=== PATIENT | male | born 1955 | race Caucasian/White ===

== ENCOUNTER 2018-12-14 17:50 | Outpatient (CLI) | payer OTHER | END 2018-12-14 17:51 | disposition critical access hospital (66) | LOC: EMS 17:50 | PROVIDERS: ATTEND Surgery | DX: R55 Syncope and collapse (principal); R42 Dizziness and giddiness; R53.83 Other fatigue | CPT/HCPCS: A0425; A0427 ==

== ENCOUNTER 2018-12-14 18:07 | Emergency (ER) | payer OTHER ==
--- NOTE | 2018-12-14 18:45 | ED Physician Documentation ---
PD HPI SYNCOPE - Stated complaint Stated Complaint: SYNCOPAL - Chief complaint Chief Complaint: Neuro - History obtained from History obtained from: Patient - History of Present Illness Witnessed: Witnessed (He had a heavy weekend with a lot of sports and activity. He was talking to someone in a standing position and felt lightheaded for about 10 seconds and then passed out briefly without injury. There is no associated chest pain or trouble breathing and he feels fine now.) Review of Systems Constitutional: denies: Fever, Chills Cardiac: denies: Chest pain / pressure, Palpitations Respiratory: denies: Dyspnea, Cough GI: denies: Abdominal Pain, Bloody / black stool PD PAST MEDICAL HISTORY - Past Medical History Past Medical History: Yes Cardiovascular: Hypertension GI: GERD, GI bleed - Past Surgical History Past Surgical History: Yes - Present Medications Home Medications: Ambulatory Orders Medication Instructions Recorded Confirmed Lisinopril 10 mg PO DAILY 12/14/18 12/14/18 No Known Home Medications 12/14/18 12/14/18 Omeprazole 20 mg PO DAILY 12/14/18 12/14/18 Zolpidem Tartrate [Ambien Cr] 12.5 mg PO DAILY 12/14/18 12/14/18 - Allergies Allergies/Adverse Reactions: Allergies Allergy/AdvReac Type Severity Reaction Status Date / Time Latex, Natural Rubber Allergy Anaphylaxis Verified 12/14/18 18:16 - Social History Does the pt smoke?: No Smoking Status: Never smoker Does the pt drink ETOH?: Yes ETOH Use: Beer Does the pt have substance abuse?: No Substance Use and Type: Marijuana - Immunizations Immunizations are current?: Yes - POLST Patient has POLST: No PD ED PE NORMAL - Vitals Vital signs reviewed: Yes - General General: Alert and oriented X 3, No acute distress - HEENT HEENT: PERRL, EOMI - Neck Neck: Supple, no meningeal sign, No bony TTP - Cardiac Cardiac: RRR, No murmur - Respiratory Respiratory: No respiratory distress, Clear bilaterally - Abdomen Abdomen: Non tender - Extremities Extremities: No edema, No calf tenderness / cord - Neuro Neuro: Alert and oriented X 3, Normal speech Results - Vitals Vitals: Vital Signs - 24 hr 12/14/18 12/14/18 12/14/18 18:12 19:00 19:20 Temperature 36.8 C Heart Rate 67 75 Heart Rate [ 73 Sitting] Heart Rate [ 80 Standing] Heart Rate [ 74 Supine] Respiratory 20 18 Rate Blood Pressure 108/67 111/67 Blood Pressure 109/67 [Sitting] Blood Pressure 98/70 [Standing] Blood Pressure 104/61 [Supine] O2 Saturation 97 98 12/14/18 19:22 Temperature Heart Rate 74 Heart Rate [ Sitting] Heart Rate [ Standing] Heart Rate [ Supine] Respiratory 19 Rate Blood Pressure 98/70 Blood Pressure [Sitting] Blood Pressure [Standing] Blood Pressure [Supine] O2 Saturation 98 Oxygen O2 Source Room air - EKG (time done) 1817 Rate: Rate (enter#) (67) Rhythm: NSR [place]: Normal Intervals: Normal OR QRS: Normal Ischemia: Q waves (III only) Compare to prior EKG: Old EKG unavailable Computer interpretation: Agree with computer - Labs Labs: Laboratory Tests 12/14/18 12/14/18 18:30 18:30 WBC 4.1 L RBC 4.22 L Hgb 13.3 L Hct 40.1 L MCV 95.0 H MCH 31.5 H MCHC 33.2 RDW 12.9 Plt Count 170 MPV 10.9 Neut # (Auto) 2.6 Lymph # (Auto) 0.9 L [place] # (Auto) 0.3 Eos # (Auto) 0.2 Baso # (Auto) 0.0 Absolute Nucleated RBC 0.00 Nucleated RBC % 0.0 Sodium 143 Potassium 3.6 Chloride 107 Carbon Dioxide 23 Anion Gap 13.0 BUN 15 Creatinine 1.0 Estimated GFR (MDRD) 76 L Glucose 112 H Calcium 8.7 Total Bilirubin 0.4 AST 20 ALT 16 Alkaline Phosphatase 44 Total Protein 7.0 Albumin 4.0 Globulin 3.0 Albumin/Globulin Ratio 1.3 Lipase 23 PD MEDICAL DECISION MAKING - ED course ED course: 63-year-old gentleman with a syncopal episode that was premonition normal without injury. His work-up is negative here and he requested discharge. He received IV fluids in route and was not orthostatic after that. Departure - Departure Disposition: 01 Home, Self Care Clinical Impression: Syncope Qualifiers: Syncope type: unspecified Qualified Code(s): R55 - Syncope and collapse Condition: Good Record reviewed to determine appropriate education?: Yes Health Concerns: syncope Plan of Treatment: labs ekg neg Care Goals: safety Assessment: as above Instructions: ED Dizziness Syncope Fainting W Pre Comments: Call your doctor to arrange a follow-up appointment, make the next available appointment. In the interim, return anytime if worse or if new symptoms develop.
[2018-12-14 18:48] LABS: BASOPHILS % (AUTO) 0.7 %; EOSINOPHILS # (AUTO) 0.2 10^3/uL (0.0-0.7); EOSINOPHILS % (AUTO) 4.4 %; HGB - HEMOGLOBIN 13.3 g/dL (14.0-18.0); LYMPHOCYTES # (AUTO) 0.9 10^3/uL (1.5-3.5); MEAN CORPUSCULAR HEMOGLOBIN 31.5 pg (27.0-31.0); MEAN CORPUSCULAR HGB CONC 33.2 g/dL (32.0-36.0); MEAN PLATELET VOLUME 10.9 fL (7.4-11.4); MONOCYTES # (AUTO) 0.3 10^3/uL (0.0-1.0); MONOCYTES % (AUTO) 7.4 %; NEUTROPHILS # (AUTO) 2.6 10^3/uL (1.5-6.6); NEUTROPHILS % (AUTO) 64.3 %; PLT - PLATELET COUNT 170 10^3/uL (130-450); RED BLOOD COUNT 4.22 10^6/uL (4.70-6.10); RED CELL DISTRIBUTION WIDTH 12.9 % (12.0-15.0); WHITE BLOOD COUNT 4.1 x10^3/uL (4.8-10.8)
[2018-12-14 18:54] LABS: ALBUMIN/GLOBULIN RATIO 1.3 (1.0-2.2); BILIRUBIN,TOTAL 0.4 mg/dL (0.2-1.0); CALCIUM 8.7 mg/dL (8.5-10.3)
[2018-12-14 19:37] VITALS: BP 110/74
== END 2018-12-14 19:36 | disposition home or self-care (01) ==
LOC: EDUNIT# → ED 18:07
DX: R55 Syncope and collapse (principal); I10 Essential (primary) hypertension
CPT/HCPCS: 36415; 80053; 83690; 85025; 93005; 99283; 99284

== ENCOUNTER 2020-04-16 20:33 | Outpatient (CLI) | payer OTHER | END 2020-04-16 20:34 | disposition critical access hospital (66) | LOC: EMS 20:33 | PROVIDERS: ATTEND Surgery | DX: R55 Syncope and collapse (principal); R41.0 Disorientation, unspecified; R53.1 Weakness; R00.1 Bradycardia, unspecified; R03.1 Nonspecific low blood-pressure reading | CPT/HCPCS: A0425; A0427 ==

== ENCOUNTER 2020-04-16 20:48 | Emergency (ER) | payer OTHER ==
[2020-04-16 21:39] LABS: BASOPHILS % (AUTO) 0.5 %; EOSINOPHILS # (AUTO) 0.7 10^3/uL (0.0-0.7); EOSINOPHILS % (AUTO) 7.7 %; HGB - HEMOGLOBIN 13.5 g/dL (14.0-18.0); LYMPHOCYTES # (AUTO) 2.2 10^3/uL (1.5-3.5); LYMPHOCYTES % (AUTO) 26.1 %; MEAN CORPUSCULAR HEMOGLOBIN 32.1 pg (27.0-31.0); MEAN CORPUSCULAR HGB CONC 33.4 g/dL (32.0-36.0); MEAN PLATELET VOLUME 11.2 fL (7.4-11.4); MONOCYTES # (AUTO) 0.9 10^3/uL (0.0-1.0); MONOCYTES % (AUTO) 10.5 %; NEUTROPHILS # (AUTO) 4.7 10^3/uL (1.5-6.6); PLT - PLATELET COUNT 193 10^3/uL (130-450); RED BLOOD COUNT 4.21 10^6/uL (4.70-6.10); RED CELL DISTRIBUTION WIDTH 12.2 % (12.0-15.0); WHITE BLOOD COUNT 8.6 x10^3/uL (4.8-10.8)
--- NOTE | 2020-04-16 21:42 | XRAY Report ---
PROCEDURE: Chest 1 View X-Ray INDICATIONS: Chest Pain TECHNIQUE: One view of the chest was acquired. COMPARISON: None FINDINGS: Surgical changes and devices: None. Lungs and pleura: No pleural effusions or pneumothorax. Lungs are clear. Mediastinum: Mediastinal contours appear normal. Heart size is normal. Bones and chest wall: No suspicious bony lesions. Overlying soft tissues appear unremarkable. IMPRESSION: No acute process. Reviewed by: Mariangel Ortega MD on 04/16/2020 9:41 PM [facility] Approved by: Mariangel Ortega MD on 04/16/2020 9:41 PM [facility] Station ID: [id number]
[2020-04-16 21:49] LABS: ALBUMIN/GLOBULIN RATIO 1.4 (1.0-2.2); BILIRUBIN,TOTAL 0.8 mg/dL (0.2-1.0); CALCIUM 8.6 mg/dL (8.5-10.3); CREATININE 1.1 mg/dL (0.6-1.2); TOTAL PROTEIN 6.8 g/dL (6.7-8.2)
--- NOTE | 2020-04-16 22:08 | ED Physician Documentation ---
PD HPI SYNCOPE - Stated complaint Stated Complaint: SYNCOPE - Chief complaint Chief Complaint: Neuro - History obtained from History obtained from: Patient, Family () PD PAST MEDICAL HISTORY - Past Medical History Cardiovascular: Hypertension GI: GERD, GI bleed - Past Surgical History Past Surgical History: Yes - Present Medications Home Medications: Ambulatory Orders Medication Instructions Recorded Confirmed Omeprazole 20 mg PO DAILY 12/14/18 04/16/20 Zolpidem Tartrate [Ambien Cr] 12.5 mg PO DAILY 12/14/18 04/16/20 lisinopriL [Lisinopril] 10 mg PO DAILY 12/14/18 04/16/20 - Allergies Allergies/Adverse Reactions: Allergies Allergy/AdvReac Type Severity Reaction Status Date / Time Latex, Natural Rubber Allergy Anaphylaxis Verified 04/16/20 20:58 - Social History Does the pt smoke?: No Smoking Status: Never smoker Does the pt drink ETOH?: Yes Does the pt have substance abuse?: No - Immunizations Immunizations are current?: Yes - POLST Patient has POLST: No Results - Vitals Vitals: Vital Signs - 24 hr 04/16/20 04/16/20 20:54 21:16 Temperature 36.4 C L 36.4 C L Heart Rate 96 96 Respiratory 18 18 Rate Blood Pressure 108/77 108/77 O2 Saturation 96 96 Oxygen O2 Source Room air - EKG (time done) 2049 Rate: Rate (enter#) (65) Rhythm: NSR [place]: Normal QRS: Normal Ischemia: Normal ST segments - Labs Labs: Laboratory Tests 04/16/20 04/16/20 04/16/20 21:00 21:00 21:00 WBC 8.6 RBC 4.21 L Hgb 13.5 L Hct 40.4 L MCV 96.0 H MCH 32.1 H MCHC 33.4 RDW 12.2 Plt Count 193 MPV 11.2 Neut # (Auto) 4.7 Lymph # (Auto) 2.2 [place] # (Auto) 0.9 Eos # (Auto) 0.7 Baso # (Auto) 0.0 Absolute Nucleated RBC 0.00 Nucleated RBC % 0.0 D-Dimer 206.5 Sodium 140 Potassium 3.6 Chloride 106 Carbon Dioxide 25 Anion Gap 9.0 BUN 19 Creatinine 1.1 Estimated GFR (MDRD) 68 L Glucose 109 H Calcium 8.6 Total Bilirubin 0.8 AST 22 ALT 21 Alkaline Phosphatase 42 Troponin I High Sens Total Protein 6.8 Albumin 4.0 Globulin 2.8 Albumin/Globulin Ratio 1.4 Lipase 18 L 04/16/20 21:00 WBC RBC Hgb Hct MCV MCH MCHC RDW Plt Count MPV Neut # (Auto) Lymph # (Auto) [place] # (Auto) Eos # (Auto) Baso # (Auto) Absolute Nucleated RBC Nucleated RBC % D-Dimer Sodium Potassium Chloride Carbon Dioxide Anion Gap BUN Creatinine Estimated GFR (MDRD) Glucose Calcium Total Bilirubin AST ALT Alkaline Phosphatase Troponin I High Sens 3.9 Total Protein Albumin Globulin Albumin/Globulin Ratio Lipase
[2020-04-16 23:18] VITALS: BP 127/80
--- NOTE | 2020-04-17 08:23 | ED Physician Documentation ---
PD HPI SYNCOPE - Stated complaint Stated Complaint: SYNCOPE - Chief complaint Chief Complaint: Neuro - History obtained from History obtained from: Patient, Family () - History of Present Illness Witnessed: Witnessed - Additional information Additional information: 64-year-old man with past medical history of high blood pressure, GERD presents with 2 syncopal episodes this evening witnessed by his . Per patient he had a long day at work but had been feeling fine prior to bed. Patient had a syncopal episode back in December 2018 that was not evaluated by a mushroom grower. Does not know if he had an echocardiogram or stress test before. This syncopal episode today was preceded by sensation of lightheadedness. Denies fever chills headache chest pain shortness of breath nausea abdominal pain. No focal neurological deficit.Fecal or urinary incontinence, tongue biting or tonic- clonic activity witnessed by . Review of Systems Ten Systems: 10 systems reviewed and negative Constitutional: denies: Fever, Chills Cardiac: denies: Chest pain / pressure Respiratory: denies: Dyspnea Neurologic: reports: Generalized weakness, Syncope. denies: Focal weakness PD PAST MEDICAL HISTORY - Past Medical History Cardiovascular: Hypertension GI: GERD, GI bleed - Past Surgical History Past Surgical History: Yes - Present Medications Home Medications: Ambulatory Orders Medication Instructions Recorded Confirmed Omeprazole 20 mg PO DAILY 12/14/18 04/16/20 Zolpidem Tartrate [Ambien Cr] 12.5 mg PO DAILY 12/14/18 04/16/20 lisinopriL [Lisinopril] 10 mg PO DAILY 12/14/18 04/16/20 - Allergies Allergies/Adverse Reactions: Allergies Allergy/AdvReac Type Severity Reaction Status Date / Time Latex, Natural Rubber Allergy Anaphylaxis Verified 04/16/20 20:58 - Social History Does the pt smoke?: No Smoking Status: Never smoker Does the pt drink ETOH?: Yes Does the pt have substance abuse?: No - Immunizations Immunizations are current?: Yes - POLST Patient has POLST: No Results - Vitals Vitals: Vital Signs - 24 hr 04/16/20 04/16/20 04/16/20 20:54 21:16 23:18 Temperature 36.4 C L 36.4 C L 36.5 C Heart Rate 96 96 90 Respiratory 18 18 18 Rate Blood Pressure 108/77 108/77 127/80 O2 Saturation 96 96 100 Oxygen O2 Source Room air - Labs Labs: Laboratory Tests 04/16/20 04/16/20 04/16/20 21:00 21:00 21:00 WBC 8.6 RBC 4.21 L Hgb 13.5 L Hct 40.4 L MCV 96.0 H MCH 32.1 H MCHC 33.4 RDW 12.2 Plt Count 193 MPV 11.2 Neut # (Auto) 4.7 Lymph # (Auto) 2.2 [place] # (Auto) 0.9 Eos # (Auto) 0.7 Baso # (Auto) 0.0 Absolute Nucleated RBC 0.00 Nucleated RBC % 0.0 D-Dimer 206.5 Sodium 140 Potassium 3.6 Chloride 106 Carbon Dioxide 25 Anion Gap 9.0 BUN 19 Creatinine 1.1 Estimated GFR (MDRD) 68 L Glucose 109 H Calcium 8.6 Total Bilirubin 0.8 AST 22 ALT 21 Alkaline Phosphatase 42 Troponin I High Sens Total Protein 6.8 Albumin 4.0 Globulin 2.8 Albumin/Globulin Ratio 1.4 Lipase 18 L 04/16/20 21:00 WBC RBC Hgb Hct MCV MCH MCHC RDW Plt Count MPV Neut # (Auto) Lymph # (Auto) [place] # (Auto) Eos # (Auto) Baso # (Auto) Absolute Nucleated RBC Nucleated RBC % D-Dimer Sodium Potassium Chloride Carbon Dioxide Anion Gap BUN Creatinine Estimated GFR (MDRD) Glucose Calcium Total Bilirubin AST ALT Alkaline Phosphatase Troponin I High Sens 3.9 Total Protein Albumin Globulin Albumin/Globulin Ratio Lipase PD MEDICAL DECISION MAKING - ED course Complexity details: reviewed results, re-evaluated patient, d/w patient, d/w family ED course: 64-year-old man presents status post syncopal episode. Work-up in the ED wit hout any acute findings. Bedside echocardiogram within normal limits. Educated patient about limitations of bedside echo and need for outpatient follow-up with cardiology and for repeat echocardiogram. Strict return precautions given. Departure - Departure Disposition: 01 Home, Self Care Clinical Impression: Syncope Condition: Good Instructions: ED Dizziness Syncope Fainting W Pre Comments: You have been seen in the emergency department for a syncopal episode. Your ekg, chest xray, and blood tests did not show any concerning features, however it is important that you follow-up with a mushroom grower for further evaluation. Ask your primary doctor for a referral. You also will need an echocardiogram that can be coordinated by your primary doctor. Discharge Date/Time: 04/16/20 23:19
== END 2020-04-16 23:19 | disposition home or self-care (01) ==
LOC: EDUNIT# → ED 20:48
DX: R55 Syncope and collapse (principal); R53.1 Weakness; Z20.828 Contact with and (suspected) exposure to other viral communicable diseases; I10 Essential (primary) hypertension; K21.9 Gastro-esophageal reflux disease without esophagitis
CPT/HCPCS: 80053; 83690; 84484; 85025; 85379; 93005; 99284

== ENCOUNTER 2023-06-16 21:47 | Outpatient (CLI) | payer MEDICARE, OTHER | END 2023-06-16 23:59 | disposition critical access hospital (66) | LOC: EMS 21:47 | DX: R46.4 Slowness and poor responsiveness (principal); K92.1 Melena; R11.10 Vomiting, unspecified; R42 Dizziness and giddiness; R53.1 Weakness; R53.83 Other fatigue | CPT/HCPCS: A0425; A0427 ==

== ENCOUNTER 2023-07-04 16:00 | Outpatient (CLI) | payer MEDICARE, OTHER | END 2023-07-04 16:15 | disposition home or self-care (01) | LOC: LAB.N 16:00 | PROVIDERS: ATTEND Family Medicine | DX: R31.9 Hematuria, unspecified (principal) | CPT/HCPCS: 87086 ==

== ENCOUNTER 2023-09-18 23:44 | Outpatient (CLI) | payer MEDICARE, OTHER | END 2023-09-18 23:45 | disposition critical access hospital (66) | LOC: EMS 23:44 | DX: R55 Syncope and collapse (principal); R42 Dizziness and giddiness | CPT/HCPCS: A0425; A0427 ==

== ENCOUNTER 2023-09-19 | Emergency (ER) | payer MEDICARE, OTHER ==
[2023-09-19 00:20] LABS: BASOPHILS % (AUTO) 0.6 %; EOSINOPHILS # (AUTO) 0.4 10^3/uL (0.0-0.7); EOSINOPHILS % (AUTO) 5.6 %; HCT - HEMATOCRIT 41.6 % (42.0-52.0); HGB - HEMOGLOBIN 12.9 g/dL (14.0-18.0); LYMPHOCYTES # (AUTO) 2.2 10^3/uL (1.5-3.5); MEAN CORPUSCULAR HEMOGLOBIN 27.4 pg (27.0-31.0); MEAN CORPUSCULAR VOLUME 88.5 fL (80.0-94.0); MEAN PLATELET VOLUME 11.2 fL (7.4-11.4); MONOCYTES # (AUTO) 0.6 10^3/uL (0.0-1.0); MONOCYTES % (AUTO) 8.7 %; NEUTROPHILS # (AUTO) 3.1 10^3/uL (1.5-6.6); NEUTROPHILS % (AUTO) 49.9 %; PLT - PLATELET COUNT 167 10^3/uL (130-450); WHITE BLOOD COUNT 6.3 x10^3/uL (4.8-10.8)
[2023-09-19 00:40] LABS: TROPONIN I HIGH SENSITIVITY < 2.3 ng/L (2.3-19.7)
[2023-09-19 00:47] LABS: ALBUMIN 4.5 g/dL (3.2-5.5); ALBUMIN/GLOBULIN RATIO 1.9 (1.0-2.2); ALKALINE PHOSPHATASE 57 IU/L (42-121); ALT ALANINE AMINOTRANSFERASE 11 IU/L (10-60); AST ASPARTATE AMINOTRANSFERASE 12 IU/L (10-42); BILIRUBIN,TOTAL 0.3 mg/dL (0.2-1.0); BUN - BLOOD UREA NITROGEN 12 mg/dL (6-20); CALCIUM 9.2 mg/dL (8.5-10.3); CARBON DIOXIDE - CO2 28 mmol/L (21-32); CHLORIDE 105 mmol/L (101-111); GFR - MDRD 75 (>89); GLUCOSE 93 mg/dL (74-104); LIPASE 10 U/L (11-82); POTASSIUM 3.5 mmol/L (3.5-4.5); SODIUM 140 mmol/L (135-145); TOTAL PROTEIN 6.9 g/dL (6.4-8.9)
--- NOTE | 2023-09-19 01:17 | XRAY Report ---
PROCEDURE: Chest 1V INDICATIONS: chest pain TECHNIQUE: One view of the chest was acquired. COMPARISON: Chest x-ray, 06/23/2023. FINDINGS: Surgical changes and devices: None. Lungs and pleura: No pleural effusions or pneumothorax. Lungs are clear. Mediastinum: Mediastinal contours appear normal. Heart size is normal. Bones and chest wall: No suspicious bony lesions. Overlying soft tissues appear unremarkable. IMPRESSION: No acute cardiopulmonary process. Reviewed by: Margot Temple MD on 09/19/2023 1:15 AM PDT Approved by: Margot Temple MD on 09/19/2023 1:15 AM PDT Station ID: [id number]
[2023-09-19 02:16] VITALS: BP 114/72; O2SAT 99
--- NOTE | 2023-09-19 02:39 | ED Physician Documentation ---
History of Present Illness - Stated complaint Stated Complaint: SYNCOPE - Chief complaint Chief Complaint: Neuro - Additonal information Additional information: Patient 67-year-old male presenting with chief complaint syncope. Brought in vi a EMS. Reports had had a fortified beer and was smoking marijuana earlier this evening. Became lightheaded. Approximately 10 seconds later reports lost consciousness. Family who is present reported that he was unconscious for only a few moments. No prolonged period of confusion or seizure-like activity. Does not take blood thinners. Family reports that he did not strike his head. He reports that he otherwise feels well at this time. Denies any chest pain, heart palpitations associated with the event. Past medical significant for hypertension for which she takes lisinopril, dyslipidemia for which she is on a statin. Review of Systems Constitutional: denies: Fever Eyes: denies: Loss of vision Ears: denies: Loss of hearing Nose: denies: Rhinorrhea / runny nose Throat: denies: Dental pain / toothache Cardiac: denies: Chest pain / pressure Respiratory: denies: Dyspnea GI: denies: Abdominal Pain PD PAST MEDICAL HISTORY - Past Medical History Past Medical History: Yes Cardiovascular: Hypertension, High cholesterol, Atrial fibrillation Respiratory: None Neuro: None Endocrine/Autoimmune: None GI: GERD, GI bleed : None Musculoskeletal: Other Derm: None - Past Surgical History Past Surgical History: Yes General: EGD Ortho: Knee replacement - Present Medications Home Medications: Ambulatory Orders Medication Instructions Recorded Confirmed Zolpidem Tartrate [Ambien Cr] 12.5 mg PO QPM PRN 12/14/18 06/20/23 lisinopriL [Lisinopril] 20 mg PO DAILY 12/14/18 06/20/23 Atorvastatin [Lipitor] 40 mg PO QPM 06/17/23 06/20/23 Pantoprazole [Protonix] 20 mg PO BID 06/17/23 06/18/23 Pregabalin [Lyrica] 225 mg PO TID 06/17/23 06/20/23 Cyanocobalamin [Vitamin B-12] 500 mcg PO DAILY #30 tab 06/26/23 Ferrous Sulfate [Feosol] 325 mg PO DAILYWM #30 tab 06/26/23 Mag Hydrox/Al Hydrox/Simeth 30 ml PO Q6HR 30 Days #2700 ea 06/26/23 [Mylanta Plus] Metoprolol Succinate [Toprol Xl] 50 mg PO DAILY #30 tab 06/26/23 Pantoprazole [Protonix] 40 mg PO BID #60 tablet 06/26/23 - Allergies Allergies/Adverse Reactions: Allergies Allergy/AdvReac Type Severity Reaction Status Date / Time Latex, Natural Rubber Allergy Anaphylaxis Verified 09/19/23 00:09 - Social History Does the pt smoke?: No Smoking Status: Never smoker Does the pt drink ETOH?: Yes Does the pt have substance abuse?: No - Immunizations Immunizations are current?: Yes - POLST Patient has POLST: No PD ED PE NORMAL - General General: Alert and oriented X 3 - HEENT HEENT: Atraumatic - Neck Neck: Supple, no meningeal sign - Cardiac Cardiac: RRR - Respiratory Respiratory: No respiratory distress - Abdomen Abdomen: Normal bowel sounds - Male Male : Deferred - Rectal Rectal: Deferred - Back Back: No CVA TTP - Derm Derm: Normal color - Extremities Extremities: No deformity Results - Vitals Vitals: Vital Signs - 24 hr 09/19/23 09/19/23 09/19/23 00:04 01:34 02:14 Temperature 36 C L Heart Rate 77 73 Heart Rate [ 73 Sitting] Respiratory 15 15 Rate Blood Pressure 133/86 H 114/72 Blood Pressure 109/71 [Sitting] O2 Saturation 96 99 Oxygen O2 Source Room air - EKG (time done) 0005 EKG releavant findings:: EKG personally interpreted by author of this note. Relevant findings are: Sinus rhythm with rate 67 bpm. Normal axis. Normal ME, QRS, QTc intervals. No ST segment elevations or T wave inversions. Sinus rhythm with rate 67 bpm. Normal axis. Normal ME, QRS, QTc intervals. No ST segment elevations or T wave inversions. - Labs Labs: Laboratory Tests 09/19/23 09/19/23 09/19/23 00:05 00:05 02:08 WBC 6.3 RBC 4.70 Hgb 12.9 L Hct 41.6 L MCV 88.5 MCH 27.4 MCHC 31.0 L RDW 16.0 H Plt Count 167 MPV 11.2 Neut # (Auto) 3.1 Lymph # (Auto) 2.2 [place] # (Auto) 0.6 Eos # (Auto) 0.4 Baso # (Auto) 0.0 Absolute Nucleated RBC 0.00 Nucleated RBC % 0.0 Sodium 140 Potassium 3.5 Chloride 105 Carbon Dioxide 28 Anion Gap 7.0 BUN 12 Creatinine 1.0 Estimated GFR (MDRD) 75 L Glucose 93 Calcium 9.2 Total Bilirubin 0.3 AST 12 ALT 11 Alkaline Phosphatase 57 Troponin I High Sens < 2.3 L < 2.3 L Total Protein 6.9 Albumin 4.5 Globulin 2.4 Albumin/Globulin Ratio 1.9 Lipase 10 L PD Medical Decision Making - ED course Complexity details: reviewed results, re-evaluated patient, considered differential, d/w patient ED course: Patient 67-year-old male presenting the emergency department after syncopal event. Afebrile, he medically stable arrival to the emergency department. To describe event such that he had an initial prodrome of lightheadedness followed by brief episode syncope with no protracted confused or postictal state. His EKG is nonacute. No indications cardiac ischemia, dysrhythmia,. High-sensitivity troponins negative. Orthostatics negative. Clear etiology for patient's symptoms are not sure however what he is describing is most consistent with vasovagal syncope. No indications cardiogenic syncope at this time and patient is relatively low risk for adverse cardiac events. Will discharge for follow-up with primary care. Clear return precautions given. Departure - Departure Disposition: 01 Home, Self Care Clinical Impression: Syncope Qualifiers: Syncope type: unspecified Qualified Code(s): R55 - Syncope and collapse Instructions: ED Syncope Vasovagal, ED Fainting Unkn Cause Comments: Thank you for allowing us to care for you today at [facility]. Today in the emergency department you were evaluated for any possible dangerous or life-threatening medical emergency. All the testing performed in the emergency department today including your EKG and blood work were all very reassuring. Please drink plenty fluids and get plenty of rest For the next few days. Please follow-up with your primary care doctor. If you have future episodes of syncope or lightheadedness or if you develop any other concerning symptoms such as chest pain or heart palpitations please return to the emergency department immediately for reevaluation.
== END 2023-09-19 02:50 | disposition home or self-care (01) ==
LOC: EDUNIT# → ED
DX: R55 Syncope and collapse (principal); I10 Essential (primary) hypertension; I48.91 Unspecified atrial fibrillation; E78.00 Pure hypercholesterolemia, unspecified; E78.5 Hyperlipidemia, unspecified; Z79.899 Other long term (current) drug therapy; Z91.040 Latex allergy status
CPT/HCPCS: 36415; 80053; 83690; 84484; 85025; 93005; 99283; 99284